=== PATIENT | male | born 1950 | race Caucasian/White ===

== ENCOUNTER 2023-02-11 13:56 | Outpatient (CLI) | payer MEDICARE, OTHER | END 2023-02-11 13:57 | disposition home or self-care (01) | LOC: CSHCP 13:56 | PROVIDERS: ATTEND Internal Medicine Critical Care Medicine | DX: J45.51 Severe persistent asthma with (acute) exacerbation (principal) | CPT/HCPCS: 36415; 71046; 82785; 85025; 86331; 86602; 86606; 86671; 87070; 87205; 94060; 94726; 94729; 94760 ==